=== PATIENT | female | born 1945 | race Caucasian/White ===

== ENCOUNTER 2017-11-30 11:21 | Emergency (ER) | payer MEDICAID ==
[~2017-11-30] VITALS: Ht 154.9 cm; Wt 108.9 kg
[2017-11-30 11:38] VITALS: BP 131/68
[2017-11-30] MEDS ORDERED: KETOROLAC 30 MG/ML VIAL IVP ONE (11:55)
--- NOTE | 2017-11-30 11:56 | NUR ---
71 /F BIB SELF FOR LLQ ABDOMINAL PAIN FOR THREE DAYS. DENIES N/V/D; SKIN IS PINK/WARM/DRY; AAOX4 WITH EVEN AND STEADY GAIT; LUNGS CLEAR BL; PT DENIES ANY FEVER, CP, SOB, OR COUGH AT THIS TIME; PATIENT STATES PAIN OF 5/10 AT THIS TIME. PATIENT POSITIONED FOR COMFORT; HOB ELEVATED; BEDRAILS UP X2; BED DOWN. ER MD MADE AWARE OF PT STATUS.
--- NOTE | 2017-11-30 12:15 | NUR ---
GRACY IS A 71 YO FEMALE BIB SELF FROM HOME FOR LLQ ABDOMINAL PAIN FOR THREE DAYS. NO HX MEDS OR ALLERGIES ABLE TO AMBULATE. UA OBTAINED
[2017-11-30 12:22] LABS: BASOPHILS % (AUTO) 0.3 % (0.0-2.0); EOSINOPHILS # (AUTO) 0.2 K/uL (0-0.4); EOSINOPHILS % (AUTO) 1.5 % (0.0-4.0); HEMATOCRIT 38.3 % (36-48); HEMOGLOBIN 12.7 g/dL (12.0-16.0); LYMPHOCYTES # (AUTO) 1.9 K/uL (2.5-16.5); MEAN CORPUSCULAR HEMOGLOBIN 30 pg (27-31); MEAN CORPUSCULAR HGB CONC 33 g/dL (33-37); MONOCYTES % (AUTO) 9.3 % (1.7-9.3); NEUTROPHILS # (AUTO) 8.1 K/uL (1.8-7.7); NEUTROPHILS % (AUTO) 71.9 % (42.2-75.2); PLATELET COUNT (AUTO) 301 K/uL (140-450); RED BLOOD CELL COUNT(AUTO) 4.25 MIL/uL (4.20-5.40); WHITE BLOOD COUNT (AUTO) 11.3 K/uL (4.8-10.8)
[2017-11-30 12:47] LABS: ALBUMIN 3.7 g/dL (3.4-5.0); ANION GAP 11.4 (8-16); ASPARTATE AMINOTRANSFERASE 11 U/L (15-37); CARBON DIOXIDE 27.4 mmol/L (21-32); CHLORIDE 107 mmol/L (98-107); CREATININE 0.6 mg/dL (0.6-1.3); GLUCOSE 113 mg/dL (74-106); LIPASE 92 U/L (73-393); POTASSIUM 3.8 mmol/L (3.5-5.1); SODIUM SERUM 142 mmol/L (136-145); TOTAL BILIRUBIN 0.6 mg/dL (0.0-1.0); UREA NITROGEN, BLOOD 10 mg/dL (7-18)
[2017-11-30] MEDS ORDERED: NACL 0.9% 1,000 ML IV ONE (12:50)
[2017-11-30 13:11] LABS: BILIRUBIN,URINE NEGATIVE (NEGATIVE); BLOOD, URINE 1+ (NEGATIVE); COLOR,URINE YELLOW (YELLOW); LEUKOCYTE ESTERASE ,URINE 1+ (NEGATIVE); NITRITE, URINE NEGATIVE (NEGATIVE); UGLUCOSE NEGATIVE (NEGATIVE)
[2017-11-30 13:14] LABS: APPEARANCE,URINE HAZY (CLEAR)
[2017-11-30 13:19] LABS: RBC,URINE 0-5 (RARE) /HPF (0-5)
--- NOTE | 2017-11-30 14:21 | NUR ---
Patient being evaluated by DR LORENZANA at bedside.
[2017-11-30 15:07] VITALS: BP 119/56
--- NOTE | 2017-11-30 15:07 | NUR ---
Patient discharged with v/s stable. Written and verbal after care instructions given and explained. Patient alert, oriented and verbalized understanding of instructions. Ambulatory with steady gait. All questions addressed prior to discharge. ID band removed. Patient advised to follow up with PMD. Rx of BENADRYL,, MOTRIN,CIPRO, given. Patient educated on indication of medication including possible reaction and side effects. Opportunity to ask questions provided and answered.
== END 2017-11-30 15:07 | disposition home or self-care (01) ==
LOC: MED 11:21
DX: K57.92 Diverticulitis of intestine, part unspecified, without perforation or abscess without bleeding (principal); N12 Tubulo-interstitial nephritis, not specified as acute or chronic; Z88.0 Allergy status to penicillin; Z90.49 Acquired absence of other specified parts of digestive tract
CPT/HCPCS: 36415; 74176; 80053; 81001; 83690; 85025; 87086; 96361; 96374; 99285; J1885; J7030

== ENCOUNTER 2021-02-01 12:23 | Emergency (ER) | payer MEDICAID ==
[~2021-02-01] VITALS: Ht 149.9 cm; Wt 95.0 kg
[2021-02-01 12:35] VITALS: BP 134/66
--- NOTE | 2021-02-01 12:47 | NUR ---
PT W/C ASSISTED TO ER BED 3
--- NOTE | 2021-02-01 13:18 | NUR ---
DR. DOAN AT PT BEDSIDE FOR FURTHER EVALUATION.
[2021-02-01] MEDS ORDERED: NACL 0.9% 1,000 ML IV ONE (13:20)
--- NOTE | 2021-02-01 13:40 | NUR ---
IV ESTABLISHED TO RIGHT AC 20G, GOOD BLOOD RETURN, COLLECTED LABS, AND UA SAMPLE GAVE TO DON VISUAL AID EXPERT AT PT BEDSIDE.
--- NOTE | 2021-02-01 13:48 | NUR ---
OBTAINED CT CONSENT, PLACED IN PT CHART.
--- NOTE | 2021-02-01 13:53 | NUR ---
75 Y/O FEMALE C/O GENERALIZED ABDOMINAL PAIN 08/31 DESCRIBES ACHING RADIATES TO RIGHT KNEE PAIN RIGHT HIP PAIN X 5 DAYS. DENIES FEVER/CHILLS. STATES +N/-V. ABD IS LARGE, NON-TENDER TO PALPATION, BOWEL SOUNDS ACTIVE X4, LAST BM 01/30/21. DENIES PMH ALLERGIES: PCN
--- NOTE | 2021-02-01 13:54 | NUR ---
[employer] PRODUCTION ASSOCIATE AT PT BEDSIDE.
[2021-02-01 14:16] LABS: BASOPHILS # (AUTO) 0.1 K/uL (0.00-0.22); BASOPHILS % (AUTO) 0.8 % (0.0-2.0); EOSINOPHILS # (AUTO) 0.1 K/uL (0-0.4); EOSINOPHILS % (AUTO) 1.7 % (0.0-4.0); HEMATOCRIT 38.7 % (36-48); HEMOGLOBIN 13.1 g/dL (12.0-16.0); LYMPHOCYTES # (AUTO) 1.7 K/uL (2.5-16.5); LYMPHOCYTES % (AUTO) 20.4 % (20.5-51.1); MEAN CORPUSCULAR HEMOGLOBIN 31 pg (27-31); MEAN CORPUSCULAR HGB CONC 34 g/dL (33-37); MEAN CORPUSCULAR VOLUME 90.7 fL (80-94); MONOCYTES # (AUTO) 0.7 K/uL (0.8-1.0); MONOCYTES % (AUTO) 8.2 % (1.7-9.3); NEUTROPHILS # (AUTO) 5.6 K/uL (1.8-7.7); NEUTROPHILS % (AUTO) 68.9 % (42.2-75.2); PLATELET COUNT (AUTO) 373 K/uL (140-450); RED BLOOD CELL COUNT(AUTO) 4.27 MIL/uL (4.20-5.40); RED CELL DISTRIBUTION WIDTH 14.7 % (11.6-13.7); WHITE BLOOD COUNT (AUTO) 8.2 K/uL (4.8-10.8)
--- NOTE | 2021-02-01 14:30 | NUR ---
PT RESTING IN BED, HOB ELEVATED, VSS, WILL CONTINUE TO MONITOR.
[2021-02-01 14:37] LABS: ALBUMIN 3.9 g/dL (3.4-5.0); ANION GAP 11.6 (8-16); ASPARTATE AMINOTRANSFERASE 12 U/L (15-37); CARBON DIOXIDE 27.1 mmol/L (21-32); CHLORIDE 108 mmol/L (98-107); CREATININE 0.7 mg/dL (0.6-1.3); GLUCOSE 94 mg/dL (74-106); LIPASE 60 U/L (73-393); POTASSIUM 3.7 mmol/L (3.5-5.1); SODIUM SERUM 143 mmol/L (136-145); TOTAL BILIRUBIN 0.3 mg/dL (0.0-1.0); UREA NITROGEN, BLOOD 13 mg/dL (7-18)
--- NOTE | 2021-02-01 14:57 | NUR ---
PT TAKEN TO CT VIA RSHELLIE.
[2021-02-01 15:05] LABS: APPEARANCE,URINE SL CLOUDY (CLEAR); BILIRUBIN,URINE NEGATIVE (NEGATIVE); BLOOD, URINE TRACE-I (NEGATIVE); LEUKOCYTE ESTERASE ,URINE 2+ (NEGATIVE); NITRITE, URINE NEGATIVE (NEGATIVE); UGLUCOSE NEGATIVE (NEGATIVE)
[2021-02-01 15:10] LABS: COLOR,URINE YELLOW (YELLOW)
--- NOTE | 2021-02-01 15:15 | NUR ---
PT TAKEN TO ER BED 3 VIA FERDINAND.
[2021-02-01 15:29] LABS: RBC,URINE 0-5 /HPF (0-5)
[2021-02-01] MEDS ORDERED: metroNIDAZOLE 500 MG TAB PO SCH (15:30)
[2021-02-01] MEDS ORDERED: CIPROFLOXACIN 250 MG TAB PO SCH (15:30)
--- NOTE | 2021-02-01 15:31 | NUR ---
DR. DOAN AT PT BEDSIDE FOR REEVALUATION.
[2021-02-01] MEDS ORDERED: ACET-2619 PO (15:35)
[2021-02-01] MEDS ORDERED: CIPR500T4 PO (15:35)
[2021-02-01] MEDS ORDERED: METR-435 PO (15:35)
[2021-02-01 15:47] VITALS: BP 124/70
--- NOTE | 2021-02-01 15:48 | NUR ---
Patient discharged with v/s stable. Written and verbal after care instructions given FOR DIVERTICULTIS AND UTI and explained. Patient alert, oriented and verbalized understanding of instructions. Ambulatory with steady gait. All questions addressed prior to discharge. ID band removed. Patient advised to follow up with PMD. Rx of CIPRO, TYNENOL, AND FLAGYL given. Patient educated on indication of medication including possible reaction and side effects. Opportunity to ask questions provided and answered.
== END 2021-02-01 15:48 | disposition home or self-care (01) ==
LOC: MED 12:23
DX: N39.0 Urinary tract infection, site not specified (principal); K57.92 Diverticulitis of intestine, part unspecified, without perforation or abscess without bleeding; M25.561 Pain in right knee; M25.551 Pain in right hip; Z90.49 Acquired absence of other specified parts of digestive tract
CPT/HCPCS: 36415; 73560; 74177; 80053; 81001; 83690; 85025; 87086; 96360; 99285; J7030; Q0092; Q9967

== ENCOUNTER 2022-12-08 08:12 | Emergency (ER) | payer MEDICAID, OTHER ==
[~2022-12-08] VITALS: Ht 152.4 cm; Wt 81.6 kg
[~2022-12-08 08:12] MED LIST: ACET-2619 PO; CIPR500T4 PO; METR-435 PO
[2022-12-08 08:44] VITALS: BP 197/91; PULSE 97; RESP 18; TEMP 97.6; O2SAT 98
[2022-12-08 08:53] VITALS: O2SAT 98
[2022-12-08] MEDS ORDERED: ACETAMINOPHEN 325 MG TAB PO ONE (09:00)
[2022-12-08] MEDS ORDERED: DICL100G32 TP (10:51)
[2022-12-08] MEDS ORDERED: ACET-10509 PO (10:51)
[2022-12-08 11:03] VITALS: BP 138/99; PULSE 99; RESP 16; TEMP 97.6; O2SAT 98
== END 2022-12-08 11:03 | disposition home or self-care (01) ==
LOC: MED 08:12
DX: S00.03XA Contusion of scalp, initial encounter (principal); S49.91XA Unspecified injury of right shoulder and upper arm, initial encounter; Z88.0 Allergy status to penicillin; Z79.899 Other long term (current) drug therapy; W01.10XA Fall on same level from slipping, tripping and stumbling with subsequent striking against unspecified object, initial encounter; Y93.E1 Activity, personal bathing and showering; Y92.89 Other specified places as the place of occurrence of the external cause; Y99.8 Other external cause status
CPT/HCPCS: 70450; 72125; 73030; 99284; Q0092

== ENCOUNTER 2023-09-13 09:16 | Emergency (ER) | payer OTHER ==
[~2023-09-13] VITALS: Ht 152.4 cm; Wt 93.0 kg
[~2023-09-13 09:16] MED LIST changes: +ACET-10509 PO; +DICL100G32 TP
[2023-09-13 09:18] VITALS: BP 147/78; PULSE 88; RESP 18; TEMP 97.8; O2SAT 97
[2023-09-13 10:13] LABS: BASOPHILS # (AUTO) 0.1 K/uL (0.00-0.22); BASOPHILS % (AUTO) 0.7 % (0.0-2.0); EOSINOPHILS # (AUTO) 0.6 K/uL (0-0.4); EOSINOPHILS % (AUTO) 7.5 % (0.0-4.0); HEMOGLOBIN 13.3 g/dL (12.0-16.0); LYMPHOCYTES # (AUTO) 1.3 K/uL (2.5-16.5); LYMPHOCYTES % (AUTO) 15.8 % (20.5-51.1); MEAN CORPUSCULAR HEMOGLOBIN 30 pg (27-31); MEAN CORPUSCULAR HGB CONC 33 g/dL (33-37); MEAN CORPUSCULAR VOLUME 91.3 fL (80-94); MONOCYTES # (AUTO) 0.5 K/uL (0.8-1.0); MONOCYTES % (AUTO) 5.6 % (1.7-9.3); NEUTROPHILS % (AUTO) 70.4 % (42.2-75.2); PLATELET COUNT (AUTO) 268 K/uL (140-450); RED BLOOD CELL COUNT(AUTO) 4.38 MIL/uL (4.20-5.40); RED CELL DISTRIBUTION WIDTH 14.2 % (11.6-13.7); WHITE BLOOD COUNT (AUTO) 8.5 K/uL (4.8-10.8)
[2023-09-13] MEDS: predniSONE 20 MG TAB PO ONE (10:13)
[2023-09-13] MEDS: FAMOTIDINE 20 MG TAB PO ONE (10:13)
[2023-09-13] MEDS: BACITRACIN OINT 500 UNITS/GM PKT TP ONE (10:13)
[2023-09-13 10:34] LABS: ALBUMIN 3.5 g/dL (3.4-5.0); BILIRUBIN,DIRECT 0.1 mg/dL (0.0-0.3); TOTAL BILIRUBIN 0.3 mg/dL (0.0-1.0); TOTAL PROTEIN, SERUM 6.7 g/dL (6.4-8.2)
[2023-09-13 11:18] LABS: CALCIUM 8.4 mg/dL (8.5-10.1); CARBON DIOXIDE 25.7 mmol/L (21-32); CHLORIDE 106 mmol/L (98-107); CREATININE 0.8 mg/dL (0.6-1.3); GLUCOSE 171 mg/dL (74-106); POTASSIUM 3.7 mmol/L (3.5-5.1); SODIUM SERUM 142 mmol/L (136-145); UREA NITROGEN, BLOOD 11 mg/dL (7-18)
[2023-09-13] MEDS ORDERED: PRED20TA5 PO (11:31)
[2023-09-13] MEDS ORDERED: CETI-24 PO (11:31)
[2023-09-13] MEDS ORDERED: HYD2.5O TP (11:31)
[2023-09-13] MEDS ORDERED: FAMO-90 PO (11:31)
== END 2023-09-13 11:50 | disposition home or self-care (01) ==
LOC: MED 09:16
DX: R21 Rash and other nonspecific skin eruption (principal); Z88.0 Allergy status to penicillin; Z79.899 Other long term (current) drug therapy
CPT/HCPCS: 36415; 80048; 80076; 85025; 85651; 86140; 99284; J7512; Q0163